=== PATIENT | male | born 1995 | race American Indian/Alaskan Native ===

== ENCOUNTER 2022-02-04 18:49 | Emergency (ER) | payer OTHER ==
[2022-02-05 02:55] LABS: Mucus,Urine FEW /HPF
[2022-02-05 02:56] LABS: Bilirubin,Urine Negative (Negative); Blood,Urine Negative (Negative); Color,Urine Yellow (Yellow); Protein,Urine <15 mg/dL mg/dL (Negative)
[2022-02-05] MEDS ORDERED: oxyCODONE /ACETAMINOPHEN 5-325MG TAB PO ONE (02:57)
--- NOTE | 2022-02-05 04:20 | Ultrasound Report ---
ULTRASOUND SCROTUM INDICATION / CLINICAL INFORMATION: right testicular pain. COMPARISON: None available. FINDINGS -- RIGHT: Right testicle demonstrates minimal microlithiasis. Fairly homogeneous echotexture is present. Color flow as well as low resistance arterial waveforms are noted within the right testicle. Right epididym al head measures 9 mm and is unremarkable. Left testicle demonstrates minimal microlithiasis. Minimally heterogeneous echotexture of the left te sticle is present. Color flow as well as low-resistance arterial waveforms are demonstrated. Left epi didymis demonstrates no significant abnormality. IMPRESSION: 1. No evidence of testicular torsion. 2. Bilateral testicular microlithiasis. Signer Name: Rory Mendoza II, MD Signed: 02/05/2022 4:15 AM Workstation Name: [id number]
[2022-02-05 06:28] VITALS: BP 134/87
== END 2022-02-05 06:28 | disposition home or self-care (01) ==
LOC: ED 18:49
DX: R10.9 Unspecified abdominal pain (principal); Z53.21 Procedure and treatment not carried out due to patient leaving prior to being seen by health care provider
CPT/HCPCS: 81001; 93975; 99284